=== PATIENT | male | born 1980 | race Caucasian/White ===

== ENCOUNTER 2019-07-05 07:09 | Emergency (ER) | payer BC ==
[2019-07-05 07:27] VITALS: BP 120/71
[2019-07-05] MEDS ORDERED: Rabies Immune Globulin/PF 1ML* 1 ML/300 UNITS VIAL IM ONE (07:29)
[2019-07-05] MEDS ORDERED: Rabies VIRUS VACCINE (RabAvert)* 2.5 UNITS VIAL IM ONE (07:29)
[2019-07-05] MEDS ORDERED: Tetan/Diph/Pertus SYR(Tdap)* 0.5 ML SYR(BOOSTRIX) use SYR contains LATEX IM ONE (07:32)
--- NOTE | 2019-07-05 07:32 | UC ---
General HPI - HPI Summary HPI Summary: 39-year-old male comes in with chief complaint of potential rabies exposure. On about June 04, 2019 patient butchered a deer. The deer was found in his yard almost and not acting normally. The patient called reinier ascencio who shot the deer the head killing it. The patient and a friend butchered the deer. They froze the meat. Upon thinking about how potentially the deer discussed it with the [facility] department who recommended rabies series. Patient does have some upper respiratory tract infection symptoms otherwise feels normal. - History of Current Complaint Stated Complaint: RABIES EXPOSURE Time Seen by Provider: 07/05/19 07:26 - Allergy/Home Medications Allergies/Adverse Reactions: Allergies Allergy/AdvReac Type Severity Reaction Status Date / Time No Known Allergies Allergy Verified 07/05/19 07:27 Home Medications: Home Medications Albuterol HFA INHALER* [Ventolin HFA Inhaler*] 2 puff INH Q4H PRN 07/05/19 [ History Confirmed 07/05/19] Levothyroxine TAB* [Synthroid TAB*] 125 mcg PO 0800 07/05/19 [History Confirmed 07/05/19] PMH/Surg Hx/FS Hx/Imm Hx Previously Healthy: Yes Endocrine History: Hypothyroidism Respiratory History: Asthma - Family History Known Family History: Positive: Non-Contributory Review of Systems All Other Systems Reviewed And Are Negative: Yes Constitutional: Positive: Other - see hpi Skin: Positive: Negative Eyes: Positive: Negative ENT: Positive: Other - see hpi Respiratory: Positive: Negative Cardiovascular: Positive: Negative Gastrointestinal: Positive: Negative Motor: Positive: Negative Neurovascular: Positive: Negative Musculoskeletal: Positive: Negative Neurological: Positive: Negative Psychological: Positive: Negative Is Patient Immunocompromised?: No Physical Exam Triage Information Reviewed: Yes Appearance: Well-Appearing, No Pain Distress, Well-Nourished Vital Signs Reviewed: Yes Eye Exam: Normal Eyes: Positive: Conjunctiva Clear Neck: Positive: Supple Respiratory: Positive: Lungs clear, Normal breath sounds, No respiratory distress Cardiovascular: Positive: RRR Musculoskeletal: Positive: Strength Intact, ROM Intact Neurological: Positive: Alert, Muscle Tone Normal Psychological: Positive: Age Appropriate Behavior Skin Exam: Normal Course/Dx - Diagnoses Provider Diagnosis: Need for post exposure prophylaxis for rabies Discharge ED - Sign-Out/Discharge Documenting (check all that apply): Patient Departure All imaging exams completed and their final reports reviewed: No Studies - Discharge Plan Condition: Stable Disposition: HOME Patient Education Materials: Rabies Vaccine (ED), Rabies Immune Globulin (By injection) Referrals: Abigail Lester MD [Primary Care Provider] - Additional Instructions: FOLLOW UP WITH THE [facility], . YOU WERE GIVEN THE FIRST RABIES VACCINE TODAY. YOU NEED TO CONTINUE THE SERIES WITH THE HEALTH DEPARTMENT. YOU WERE ALSO GIVEN RABIES IMMUNE GLOBULIN AND TDAP (TETANUS/DIPTHERIA/TETANUS) TODAY. - Billing Disposition and Condition Condition: STABLE Disposition: Home
== END 2019-07-05 09:05 | disposition home or self-care (01) ==
LOC: UCEAST 07:09
DX: Z23 Encounter for immunization (principal); Z20.3 Contact with and (suspected) exposure to rabies; E03.9 Hypothyroidism, unspecified; J45.909 Unspecified asthma, uncomplicated; Z79.890 Hormone replacement therapy
CPT/HCPCS: 90375; 90471; 90472; 90675; 90715; 96372; 99211; G0463